=== PATIENT | female | born 1940 | race Caucasian/White ===

== ENCOUNTER → 2024-02-13 | Day surgery (SDC) | payer MEDICARE | LOC: BICULT 12:27 | PROVIDERS: ATTEND Family Medicine Sports Medicine | PROC: 0HB5XZX Excision of Chest Skin, External Approach, Diagnostic (ICD-10-PCS; principal; 2024-02-13) | DX: C50.811 Malignant neoplasm of overlapping sites of right female breast (principal); R92.8 Other abnormal and inconclusive findings on diagnostic imaging of breast; Z17.0 Estrogen receptor positive status [ER+] | CPT/HCPCS: 19083; 88305; 88341; 88342; 88361; 88374 ==